=== PATIENT | male | born 1985 | race Caucasian/White ===

== ENCOUNTER 2019-09-01 13:30 | Outpatient (CLI) | payer BC, SELFPAY ==
--- NOTE | 2019-09-01 13:49 | MR_ITS ---
WS: [id number] MRI LUMBAR SPINE WITH CONTRAST TECHNIQUE: Sagittal T1, T2 and STIR imaging. Axial T1 and T2 imaging. Post gadolinium imaging was obt ained. CLINICAL INFORMATION: CANCER, PT HAS LOW BACK PAIN COMPARISON: None. FINDINGS: Mild lumbar curve. No acute compression. Disc bulging worse L4-5 with a small annular tear. L1-L2: Normal. L2-L3: Normal. L3-L4: Minimal annular bulging. Mild facet arthropathy. Spinal canal and foramen are patent. L4-L5: Central and left pericentral disc protrusion with impingement on the left subarticular recess and traversing left L5 nerve root. Mild central canal stenosis. Recommend correlation for left L5 ner ve root symptoms. Mild left and no significant right foraminal narrowing. Mild facet arthropathy. L5-S1: Spinal canal and foramen are patent. Mild facet arthropathy. Small right renal cyst MR/MR lumbar spine wo/w con [id number] IMPRESSION: 1. Mild lumbar curve. No acute compression. No high-grade central canal stenos is. 2. Small central left pericentral disc protrusion L4-5 with narrowing of the l eft subarticular recess and slight impingement traversing left L5 nerve root. R ecommend correlation for left L5 nerve root symptoms.Tiny annular tear at this level. 3. Mild facet arthropathy L3-L4, L4-L5 and left L5-S1. 4. Minimal annular bulging L2-L3 and L3-L4 without significant spinal canal or foraminal narrowing. 5. No abnormal gadolinium enhancement.
== END 2019-09-01 13:31 | disposition home or self-care (01) ==
PROVIDERS: Family Provider Family Medicine; PCP Family Medicine; Visit Provider Student in an Organized Health Care Education/Training Program
DX: M51.26 Other intervertebral disc displacement, lumbar region (principal); M54.5 Low back pain
CPT/HCPCS: 72158; A9579

== ENCOUNTER → 2019-11-18 12:20 | Outpatient (BNVA) | payer BC, SELFPAY | PROVIDERS: Family Provider Family Medicine; PCP Family Medicine; Referring Provider Licensed Practical Nurse; Visit Provider Anesthesiology Pain Medicine | DX: M54.9 Dorsalgia, unspecified (principal); M79.672 Pain in left foot | CPT/HCPCS: 99203; 99204 ==

== ENCOUNTER → 2019-11-30 14:13 | Outpatient (BNVA) | payer BC, SELFPAY | PROVIDERS: Family Provider Family Medicine; PCP Family Medicine; Visit Provider Anesthesiology Pain Medicine | DX: M51.26 Other intervertebral disc displacement, lumbar region (principal); M54.9 Dorsalgia, unspecified; Z79.891 Long term (current) use of opiate analgesic | CPT/HCPCS: 64483; 64484; J1040; J2001; J3490 ==

== ENCOUNTER → 2021-01-04 14:43 | Outpatient (BNVA) | payer OTHER, SELFPAY | PROVIDERS: Family Provider Family Medicine; PCP Family Medicine; Visit Provider Orthopaedic Surgery | DX: M54.5 Low back pain (principal) | CPT/HCPCS: 72110 ==

== ENCOUNTER → 2021-01-16 14:33 | Outpatient (BNVA) | payer OTHER, SELFPAY | PROVIDERS: Family Provider Family Medicine; PCP Family Medicine; Visit Provider Orthopaedic Surgery | DX: Z01.812 Encounter for preprocedural laboratory examination (principal); Z20.822 Contact with and (suspected) exposure to COVID-19; Z11.52 Encounter for screening for COVID-19 | CPT/HCPCS: 87635 ==

== ENCOUNTER 2021-01-22 05:46 | Day surgery (SDC) | payer OTHER, SELFPAY ==
[2021-01-19 14:50] VITALS: BMI 28.1
[2021-01-22] VITALS (7 sets, daily range): BP systolic 130–159; BP diastolic 71–90; PULSE 69–78; RESP 15–20; TEMP 36.2–36.6; O2SAT 94–98
--- NOTE | 2021-01-22 | XR_ITS ---
WS: [id number] C-ARM RADIOGRAPHS LUMBAR SPINE; 2 IMAGES HISTORY: decompression L4/5 COMPARISON: None available. Intraoperative imaging during decompression at L4-5. XR/XR lumbar spine 1V [id number] IMPRESSION: Intraoperative imaging during spine decompression.
--- NOTE | 2021-01-22 | SCC_ITS ---
Procedure Done: 1. Left L4/5 laminectomy with partial facetectomy 9.4 seconds of fluoroscopic guidance, for a cumulative dose of 2.62 mGy, was provided to Dr. Prado by the radiology department. C-arm images of the lumbar spine were saved for the patient's permanent record. [facility]
--- NOTE | 2021-01-22 06:47 | W.PM.OPSUD ---
Surgery/Procedure H&P Update DATE OF PROCEDURE: January 22, 2021 DATE H&P PERFORMED: 01/04/21 H&P UPDATE INFORMATION: I have reviewed H&P completed within last 30 days, I have examined patient prior to procedure and No changes to prior documentation PREOP DIAGNOSIS: lumbar stenosis PLANNED PROCEDURE: Operation Date: 01/22/21 07:00 Proposed Procedures p 13811 left L 4/5 decompression with diskectomy m48.062(Bilateral) - DO teresa Roper Discectomy(Not Applicable) - Darrick Prado DO
[2021-01-22] MEDS: sodium chloride 0.9% 1,000 ML 30 ML IV (06:50)
--- NOTE | 2021-01-22 07:00 | ANES.PREANE2 ---
Pre-Anesthetic Assessment Pre-Anesthetic Assessment: Height/Weight: Height 1.91 m Weight 102.058 kg Temp Pulse Resp BP Pulse Ox 97.9 F 69 18 132/71 98 01/22/21 06:08 01/22/21 06:08 01/22/21 06:08 01/22/21 06:08 01/22/21 06:08 Preop Diagnosis: lumbar stenosis Proposed Procedure: Operation Date: 01/22/21 07:00 Proposed Procedures p [id number] left L 4/5 decompression with diskectomy m48.062(Bilateral) - Darrick Prado DO s Discectomy(Not Applicable) - Darrick Prado DO Familial anesthetic complications: denies Was Beta Simone taken within 24 hours: N/A Was Clonidine taken within 24 hours: N/A Last intake: Intake Last Liquid Date 01/21/21 Last Liquid Time 20:00 Last Solid Date 01/21/21 Last Solid Time 19:00 Social: Social History: No alcohol and No tobacco Exam: Pre-Anes Outpt Exam: alert, oriented x 3, clear to auscultation bilaterally and regular rate & rhythm Airway: Submandibular: WNL Cervical ROM: WNL MP: 1 History/ROS: No significant history except as noted Pulmonary: Pulmonary: None reported CV/HEM: CV/HEM: None reported : : None reported Hepatic: Hepatic: None reported GI: GI: None reported Metabolic: Metabolic: None reported Musc/skel: Musc/skel: None reported Neuropsych: Neuropsych: None reported Anesthetic Plan: ASA status: 1 Anesthesia: Anesthesia Evaluation and General Risk of > 500 ml blood loss (7ml/kg in children): No Meds/Allergies Current Medications: Current Medications Generic Name Dose Route Start Last Admin Trade Name Freq PRN Reason Stop Dose Admin Sodium Chloride 1,000 mls @ 30 ml s/hr 01/22/21 06:00 01/22/21 06:50 Sodium Chloride 0.9% IV 01/23/21 05:59 30 mls/hr .Q24H SHALINI Administration PFSH Anesthesia PFSH: Medical History (Updated 01/04/21 @ 15:08 by Darrick Prado DO) Displacement of lumbar intervertebral disc Surgical History History of orchiectomy Left due to semin[place] Family History Other Family history non-contributory Social History Smoking and tobacco status: never smoked Alcohol intake: unknown Lives independently: Yes Household members: spouse Housing: House service: No Current occupational status: employed Data Anesthesia Cardiac Studies: No Data to Display
--- NOTE | 2021-01-22 08:01 | P.OP_ITS ---
Operative Report Date of procedure: January 22, 2021 Pre-op Diagnosis: lumbar stenosis Post-op diagnosis: same Procedure Done: 1. Left L4/5 laminectomy with partial facetectomy Surgeon: Darrick Prado Anesthesia: General Estimated blood loss (mL): 5 Condition: stable Disposition: PACU Procedure: 1. Left L4/5 laminectomy with partial facetectomy Patient is brought to the operative suite. After undergoing anesthesia they are placed in the supine position. All areas of impingement are well padded. Patient is then prepped and draped in the normal sterile fashion. A skin incision is made over the L4/5 level. This is confirmed under c-arm guidance. A series of dilators are passed and the tubular retractor is docked on the L4 lamina. A bovie is used to clear the soft tissue off the lamina and the L 4/5 facet joint. A high speed wilfredo is then used to perform the la minectomy and take down the medial aspect of the L 4/5 facet joint. A kerrison rongeure was then used to take down the remaining lamina and smooth the edge of the laminectomy up to the point where the ligamentum flavum attaches. Attention was then brought to the medial aspect of the facet joint. The remaining medial aspect of the superior and inferior aspect of the facet joint were taken down with the kerrison from the pedicle of L4 to L 5. The facet joint had significant hypertrophy. Attention was then brought to the Ligamentum Flavum. The ligament was taken down from the lamina of L4 to L5 and out medially to the remaining facet joint. The ligament was thick. The dura was then exposed. The dura was in good repair. The L4 nerve was then traced with a curette out the L4/5 foramen and found to be adequately decompressed. The L5 nerve was traced with a curette around the L5 pedicle. The lateral recess was opened with a kerrison helping to further decompress the L5 nerve. The disc base was evaluated did not feel that there need to be a discectomy performed. [place] that the nerve was adequately decompressed. Wound is then irrigated copiously with saline and surgiflo is used to stop any bleeding. The tubular retractor is removed and the wound is closed with vicryl and monocryl suture. Glue is then used to protect the wound. A sterile dressing is then placed. Patient was then placed in the supine position and transferred to the PACU in stable condition.
--- NOTE | 2021-01-22 08:25 | SUR.PHASEI ---
PT NOT AWAKE , COUGHS ORAL AIRWAY OUT , PT WITH GOOD RESP EFFORT, VSS PT SLEEPS IF NOT DISTURBED.
[2021-01-22] MEDS: HYDROcodone-acetaminophen 5-325 mg Tablet 1 TAB PO (09:04)
--- NOTE | 2021-01-22 15:10 | ANE.PACU2 ---
Inpatient post-anesthesia follow up: Airway intact: Yes Vital signs: Temperature 97.9 F Pulse Rate 72 Respiratory Rate 18 Blood Pressure 159/82 Pulse Oximetry 96 Oxygen Delivery Me thod Room Air Oxygen Flow Rate 6 Fraction of Inspir ed Oxygen Hydration adequate: Yes Nausea and vomiting: No Pain level: 2 Mental status: Baseline
== END 2021-01-22 09:20 | disposition home or self-care (01) ==
PROVIDERS: PCP Family Medicine; Visit Provider Orthopaedic Surgery
PROC: (CPT 63005; principal; 2021-01-22 07:00)
PROC: (CPT 63047; 2021-01-22 07:00)
DX: M48.061 Spinal stenosis, lumbar region without neurogenic claudication (principal)
CPT/HCPCS: 63047; 72020; 76000; J0690; J1100; J1885; J2250; J2405; J2704; J3010; J3490; J7030

== ENCOUNTER 2023-03-11 16:54 | Outpatient (CLI) | payer OTHER, SELFPAY ==
--- NOTE | 2023-03-11 17:22 | XRR_ITS ---
PROCEDURE INFORMATION: Exam: XR Left Shoulder Exam date and time: 03/11/2023 5:24 PM Age: 37 years old Clinical indication: Pain; Shoulder; Left; Additional info: Tendinopathy of left rotator cuff TECHNIQUE: Imaging protocol: Radiologic exam of the left shoulder. Views: 2 or more views. COMPARISON: No relevant prior studies available. FINDINGS: Bones/joints: Acromioclavicular separation of 16 mm Soft tissues: Normal. XR/XR shoulder LT min 2V* [id number] IMPRESSION: Acromioclavicular separation measuring 16 mm
== END 2023-03-11 16:55 | disposition home or self-care (01) ==
PROVIDERS: PCP Family Medicine; Visit Provider Nurse Practitioner Family
DX: S43.102A Unspecified dislocation of left acromioclavicular joint, initial encounter (principal); X58.XXXA Exposure to other specified factors, initial encounter; M67.912 Unspecified disorder of synovium and tendon, left shoulder
CPT/HCPCS: 73030